=== PATIENT | female | born 1970 | race Two or more races ===

== ENCOUNTER 2024-05-28 20:06 | Emergency (ER) | payer OTHER, SELFPAY ==
[2024-05-28 20:07] VITALS: BMI 33.3
[2024-05-28 21:18] VITALS: BP 138/83; PULSE 96; RESP 18; TEMP 36.8; O2SAT 99
--- NOTE | 2024-05-28 21:23 | XR_ITS ---
Examination: PA lateral chest 2 views Technique: Upright PA lateral chest 2 views Exam date and time: May 28, 2024 2137 hrs. Comparison March 01, 2018 Indications: Onset chest pressure today. Findings: Mild prominence left ventricle No pneumonia or pulmonary edema The osseous structures are intact Minor subsegmental atelectasis left base Impression: No active disease
--- NOTE | 2024-05-28 21:23 | EKG_ITS ---
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
--- NOTE | 2024-05-28 21:23 | PD.EDRME ---
Rapid Medical Screening Exam RME Arrival date/time: 05/28/24 20:06 53-year-old female with past medical history of tachycardia and no longer on medication presents emergency department complaining of headache that has not resolved after taking Advil but she also endorses chest pain with palpitations. Chief Complaint: Headache Time Seen by Provider: 05/28/24 20:29 Vital signs: Vital Signs Temperature 98.2 F 05/28/24 21:18 Pulse Rate 96 05/28/24 21:18 Respiratory Rate 18 05/28/24 21:18 Blood Pressure 138/83 H 05/28/24 21:18 Pulse Oximetry (%) 99 05/28/24 21:18 Oxygen Delivery Method Room Air 05/28/24 21:18 Vital signs reviewed by provider: Yes
[2024-05-28] MEDS: ACETAMINOPHEN 500 MG TABLET 1000 MG PO (21:41)
[2024-05-28 21:52] LABS: Basophils % (Auto) 0 % (0-2.5); Eosinophils # (Auto) 0.1 Thou/mm3 (0.0-0.5); Eosinophils % (Auto) 1 % (0-10); Hematocrit 40.6 % (36.0-46.0); Hemoglobin 13.8 g/dL (12.0-16.0); Immature Granulocytes % (Auto) 0 % (0-0); Immature Granulocytes Auto 0.03 Thou/mm3 (0.00-0.00); Lymphocytes # (Auto) 2.6 Thou/mm3 (1.0-4.8); Lymphocytes % (Auto) 25 % (10-50); Mean Corpuscular Hemoglobin 29.1 pg (25.0-35.0); Mean Corpuscular Volume 86 fL (80-100); Monocytes # (Auto) 0.6 Thou/mm3 (0.0-0.8); Monocytes % (Auto) 6 % (0-12); Neutrophils # (Auto) 7.1 Thou/mm3 (1.8-7.7); Neutrophils % (Auto) 67 % (37-80); Nucleated Red Blood Cell % 0 /100 WBC (0); Platelet Count 395 Thou/mm3 (140-440); RDW Standard Deviation 39.1 fL (36.4-46.3); Red Blood Count 4.75 Miln/mm3 (4.00-5.20); White Blood Count 10.5 Thou/mm3 (3.6-11.0)
[2024-05-28 22:04] LABS: B-Type Natriuretic Peptide < 20 pg/mL (0-100); INR 0.9 (0.9-1.3); Partial Thromboplastin Time 25.2 Seconds (22.0-36.0); Prothrombin Time 10.3 Seconds (9.0-12.2)
[2024-05-28 22:07] LABS: Alanine Aminotransferase 32 U/L (10-49); Albumin, Serum 4.5 gm/dL (3.5-5.0); Albumin/Globulin Ratio 1.4 (1.2-2.2); Alkaline Phosphatase 119 U/L (46-116); Anion Gap 8 (7-16); Aspartate Amino Transferase 37 U/L (0-34); BUN/Creatinine Ratio 14 Ratio (12-20); Bilirubin,Total 0.3 mg/dL (0.3-1.2); Blood Urea Nitrogen 10 mg/dL (9-23); Carbon Dioxide 26.7 mMol/L (20.0-31.0); Chloride 108 mMol/L (98-107); Creatinine (Component) 0.7 mg/dL (0.6-1.3); Estimated Creatinine Clearance 104.6 mL/min (>60); Free T4 (Free Thyroxine) 1.43 ng/dL (0.89-1.76); Globulin 3.3 gm/dL (2.3-3.5); Glucose 111 mg/dL (74-106); Osmolality,Calculated 284 (275-295); Potassium 3.9 mMol/L (3.4-5.1); Sodium 143 mMol/L (136-145); Thyroid Stimulating Hormone 1.76 uIU/mL (0.55-4.78); Total Protein 7.8 gm/dL (5.7-8.2); Troponin I < 0.020 ng/mL (0.0-0.045); eGFR > 60 See Note
[2024-05-28 22:22] LABS: Collection Type, Urine Clean Catch
[2024-05-28 22:27] LABS: Bacteria,Urine Rare; Bilirubin,Urine Negative (Negative); Blood,Urine Negative (Negative); Clarity,Urine Turbid (Clear/Hazy); Color,Urine Colorless (Lt Yel-Yel); Glucose, Urine Negative (Negative); Ketones,Urine Negative (Negative); Leukocyte Esterase,Urine Positive (Negative); Nitrite,Urine Negative (Negative); Protein,Urine Negative (Neg - Trace); RBC,Urine 4 /hpf (0-3); Specific Gravity,Urine 1.011 (1.001-1.035); Squamous Epithelial Cell,Urine 1 /hpf (0-5); Urobilinogen,Urine Negative mg/dL (0.0-1.0); WBC,Urine 10 /hpf (0-5)
[2024-05-28 22:36] LABS: Amphetamine/Methamp Scrn,U Negative (Negative); Barbiturate Screen,Urine Negative (Negative); Benzodiazepines Screen,Urine Negative (Negative); Benzoylecgonine Screen, Ur Negative (Negative); Fentanyl Screen,Urine Negative (Negative); Opiate Screen,Urine Negative (Negative); THC Screen,Urine Negative (Negative)
[2024-05-28 23:39] VITALS: BP 150/92; PULSE 89; RESP 18; O2SAT 98
--- NOTE | 2024-05-29 00:02 | EDNOTE_ITS ---
ED General RME/HPI General Chief complaint: Headache Stated complaint: HEADAHCE / CHEST PRESSURE X 1HOUR Time Seen by Provider: 05/28/24 20:29 Arrival date/time: 05/28/24 20:06 RME / HPI RME / HPI narrative: 05/28/24 20:06 53-year-old female with past medical history of tachycardia and no longer on medication presents emergency department complaining of headache that has not resolved after taking Advil but she also endorses chest pain with palpitations. Dr. Steve?s Main ED Evaluation: 53yo female with a history of HTN, SVT s/p ablation presents to the ED for a chief complaint of mid chest pain. Patient states she was taking a bath when she started having chest pain that worsened on palpation. She states she became anxious due to having 2 friends who recently had MIs, so she came in for evaluation. She denies any fever, chills, headache, neck pain, back pain, shortness of breath or any other associated symptoms. She denies any tobacco or illicit drug use. Excel Analyst is Dr. Thornton. Related Data Home Medications ?Medication ?Instructions ?Recorded ?Confirmed gabapentin 300 mg capsule 300 mg PO BID #0 caps 05/25/21 metoprolol succinate 25 mg 25 mg PO QDAY ##0 05/01/17 05/25/21 tablet,extended release 24 hr montelukast 10 mg tablet 10 mg PO DAILY 10/30/1705/11 (Singulair) cholecalciferol (vitamin D3) 50 2,000 unit PO QDAY 03/2805/25/21 mcg (2,000 unit) tablet (Vitamin D3) omega 1-qpe-tid-fish oil 1,000 mg 1 cap PO QDAY 05/25/21 (120 mg-180 mg) capsule (Fish Oil) fluoxetine 10 mg capsule 10 mg PO QPM 08/18/19 zinc 50 mg capsule 50 mg PO QDAY 05/25/2105/25 Previous Rx's ?Medication ?Instructions ?Recorded hydrocodone 5 mg-acetaminophen 325 1 tab PO BID PRN pa in #6 tabs 05/25/22 mg tablet ibuprofen 800 mg tablet 800 mg PO TID PRN pain #30 t abs 05/25/22 Allergies Allergy/AdvReac Type Severity Reaction Status Date / Time pregabalin (From Lyrica) Allergy Severe Swelling Verified 05/25/22 10:41 of Lip/Tongue/Throat Review of Systems Review of Systems Systems Reviewed: All systems reviewed, normal except as documented Past Medical History Past Medical History NEUROLOGIC: Negative Neurological Disorders, Seizures or Migraine CARDIAC: Positive Cardiac Disorders, Cardiac Arrhythmia, Atrial Fibrillation (ablation at 24yo) and Edema; Negative Heart Murmur, Congestive Heart Failure or Hypertension RESPIRATORY: Negative Chronic Obstructive Pulmonary Disease (COPD), Asthma or Bronchitis GASTROINTESTINAL: Positive Gall Bladder Disease; Negative Gastrointestinal Disorders or Hepatitis GENITOURINARY: Negative Genitourinary Disorders or Renal Disease REPRODUCTIVE: Positive Previous Pregnancies MUSCULOSKELETAL: Positive Musculoskeletal Disorders and Fibromyalgia ENDOCRINE: Positive Endocrine Disorders; Negative Diabetes Mellitus Type 1, Diabetes Mellitus Type 2, Hyperthyroidism or Hypothyroidism HEMATOLOGIC: Negative Blood Disorders or Sickle Cell Disease PSYCHO/SOCIAL: Positive Anxiety; Negative Depression OTHER HISTORY: Positive Chicken Pox, Measles, Mumps and Rubella (Syriac Measles); Negative Hospitalization, Autoimmune Disease, Shingles, Falls, Blood Transfusions, Blood Transfusion Reaction, Anesthesia Reactions, Chemotherapy, Radiation Therapy, MRSA or Cancer Family History FAMILY HISTORY: Positive Family Gastrointestinal Problems and Family Cancer; Negative Family Psychiatric Problems, Family Respiratory Disorders, Family Cardiac Disorders, Family Surgery or Family Anesthesia Reaction Surgical History SURGICAL: Positive Cardiac Surgery (ablation - afib), Cardiac Catheterization, Eye Surgery and Tubal Ligation; Negative Joint Replacement Social History SMOKING STATUS: Never smoker SUBSTANCE USE: does not use ED Exam Narrative Physical exam: GENERAL APPEARANCE: alert and oriented x 4, well-developed, well-nourished, no acute distress VITALS: All vitals were reviewed and the pulse ox is 98% on room air, which is normal according to my interpretation. HEENT: Normocephalic, atraumatic; pupils equal, round, reactive to light; EOMI; mucous membranes pink, moist; oropharynx clear NECK: Supple LUNGS: CTABL; no wheezes, no rales, no rhonchi HEART: Regular rate, regular rhythm; normal S1, S2; no murmurs ABDOMEN: non distended; normal BS; soft, no tenderness, no guarding, no rebound; no masses, no organomegaly, no hernia BACK: no CVA tenderness EXTREMITIES: atraumatic; no edema NEUROLOGIC: awake; alert and oriented x4; cranial nerves II-XII grossly intact; no focal sensory or motor deficits PSYCHIATRIC: appropriate mood and affect SKIN: warm, dry, normal color; no rashes Course Course Course Narrative: CXR is ordered for determining the etiology of chest pain. Quality Measures none Orders Category Date Time Status EKG (ED ONLY) *Do not use* NOW Care 05/28/24 21:23 Completed EKG (ED Only) Stat Exams 05/28/24 21:23 Draft XR chest 2V Stat Exams 05/28/24 21:23 Completed B-Type Natriuretic Peptide Stat Lab 05/28/24 21:37 Completed CBC Stat Lab 05/28/24 21:37 Completed Comprehensive Metabolic Panel Stat Lab 05/28/24 21:37 Completed Drug Screen,Urine Stat Lab 05/28/24 22:15 Completed Free T4 (Free Thyroxine) Stat Lab 05/28/24 21:37 Completed Magnesium Stat Lab 05/28/24 21:37 Completed Partial Thromboplastin Time Stat Lab 05/28/24 21:37 Completed Prothrombin Time with INR Stat Lab 05/28/24 21:37 Completed TSH [Thyroid Stimulating Hormone] Stat Lab 05/28/24 21:37 Completed Troponin I Stat Lab 05/28/24 21:37 Completed Urinalysis Stat Lab 05/28/24 22:15 Completed Acetaminophen Tab [Tylenol ES Tab] Med 05/28/24 21:24 Discontinued 1,000 mg PO X1 ONE LORazepam [Ativan] Med 05/29/24 00:35 Discontinued 1 mg PO X1 ONE Vital Signs Vital signs: Vital Signs Temperature 98.2 F 05/28/24 21:18 Pulse Rate 96 05/28/24 21:18 Respiratory Rate 18 05/28/24 21:18 Blood Pressure 138/83 H 05/28/24 21:18 Pulse Oximetry (%) 99 05/28/24 21:18 Oxygen Delivery Method Room Air 05/28/24 21:18 [facility] Patient data External records reviewed:: [facility] previous records (Per chart review, patient has no relevant previous ED visits.) Clinical information provided by:: patient Social determinants that could affect healthcare access:: none Patient has the following chronic illnesses:: HTN How is presenting disease/condition affected by chronic disease/condition?: u neffected by Evaluation data The following diagnostics were reviewed and interpreted by me:: lab results, radiology exam(s) and EKG tracing(s) Lab and/or radiology exams considered but not ordered:: none Interpretation Summary: CBC is normal, PT and INR are normal, PTT is normal, CMP is normal, Magnesium is normal, Troponin is normal, BNP is normal, TSH and Free T4 are normal, UDS is negative, according to my interpretation. EKG done at 2131, NSR, rate of 81, QRS: 116, QTc: 402, normal axis, no ectopy, no acute ischemia, according to my interpretation. [place] [facility] Report Signed Patient: AC JOHNSON. Record#: [id number] Birthdate: 1970 Age/Sex: 53 / F Location: [facility] Attending Dr: Ordering Physician: Brittanie Irwin ([employer])Avinash Date of Service: 05/28/24 Procedure(s): XR chest 2V Accession Number(s): [id number] cc: Emanuel Nickerson MD; Temporary Provider,ED ; Brittanie Irwin ([facility]),Avinash SMITH~ Examination: PA lateral chest 2 views Technique: Upright PA lateral chest 2 views Exam date and time: May 28, [id number] hrs. Comparison March 01, 2018 Indications: Onset chest pressure today. Findings: Mild prominence left ventricle No pneumonia or pulmonary edema The osseous structures are intact Minor subsegmental atelectasis left base Impression: No active disease Dictated By: Emanuel Nickerson MD Signed By: <Electronically signed by Emanuel Nickerson MD in OV> 05/28/242144 Medications Medications considered but not ordered:: none Medication administrations:: Medication Administration History Discontinued Medications Acetaminophen (Acetaminophen 500 Mg Tablet) 1,000 mg PO X1 ONE Stop: 05/28/24 21:25 Last Admin: 05/28/24 21:41 Dose: 1,000 mg Documented By: KF Lorazepam (Lorazepam 0.5 Mg Tablet) 1 mg PO X1 ONE Stop: 05/29/24 00:36 Last Admin: 05/29/24 00:58 Dose: 1 mg Documented By: SF see above Consultations Consultation(s) initiated? (list below): No Diagnosis Differential Diagnosis ED Complaint MDM: STEMI, NSTEMI, angina, costochondritis, rib strain Most likely diagnosis given after review of the tests above:: see below Admission Indicated Admission indicated?: not indicated Explain why admission is indicated or not indicated:: No criteria for admission. Admission Request Was there a request for admission?: No Disposition Plan Disposition Plan: Discharge Discharge Attestation Discharge Attestation: The patient and all family members were given an opportunity to ask questions and understood the discharge instructions. Discharge instructions specifically effects, indications for sooner follow up or return to the emergency department, and the expected course of current diagnosis. Patient condition: Stable Medical Decision Making MDM Narrative MDM Narrative: Scribe Attestation: 05/29/24 - Thong, Bhavana Frias am scribing for and in the presence of Dr. Steve. Differential Diagnosis Differential Diagnosis: STEMI, NSTEMI, angina, costochondritis, rib strain Lab Data 05/28/24 21:37 05/28/24 21:37 Labs: Lab Results 05/28/24 05/28/24 Range/Units 21:37 22:15 WBC 10.5 (3.6-11.0) Thou/mm3 RBC 4.75 (4.00-5.20) Miln/mm3 Hgb 13.8 (12.0-16.0) g/dL Hct 40.6 (36.0-46.0) % MCV 86 (80-100) fL MCH 29.1 (25.0-35.0) pg MCHC 34.0 (31.0-37.0) g/dl RDW Std Deviation 39.1 (36.4-46.3) fL Plt Count 395 (140-440) Thou/mm3 Neut % (Auto) 67 (37-80) % Lymph % (Auto) 25 (10-50) % Lynn % (Auto) 6 (0-12) % Eos % (Auto) 1 (0-10) % Baso % (Auto) 0 (0-2.5) % Neut # (Auto) 7.1 (1.8-7.7) Thou/mm3 Lymph # (Auto) 2.6 (1.0-4.8) Thou/mm3 Lynn # (Auto) 0.6 (0.0-0.8) Thou/mm3 Eos # (Auto) 0.1 (0.0-0.5) Thou/mm3 Baso # (Auto) 0.0 (0.0-0.2) Thou/mm3 Immature Gran # (Auto) 0.03 H (0.00-0.00) Thou/mm3 Absolute Nucleated RBC 0.00 (0.00-0.00) Thou/mm3 Immature Gran % 0 (0-0) % Nucleated RBC % 0 (0) /100 WBC PT 10.3 (9.0-12.2) Seconds INR 0.9 (0.9-1.3) APTT 25.2 (22.0-36.0) Seconds Sodium 143 (136-145) mMol/L Potassium 3.9 (3.4-5.1) mMol/L Chloride 108 H (98-107) mMol/L Carbon Dioxide 26.7 (20.0-31.0) mMol/L Anion Gap 8 (7-16) BUN 10 (9-23) mg/dL Creatinine 0.7 (0.6-1.3) mg/dL Estim Creat Clear Calc 104.6 (>60) mL/min eGFR > 60 (60 - ) See Note BUN/Creatinine Ratio 14 (12-20) Ratio Glucose 111 H (74-106) mg/dL Calculated Osmolality 284 (275-295) Calcium 10.0 (8.3-10.6) mg/dL Corrected Calcium 10.0 (8.5-10.1) mg/dL Magnesium 2.0 (1.6-2.6) mg/dL Total Bilirubin 0.3 (0.3-1.2) mg/dL AST 37 H (0-34) U/L ALT 32 (10-49) U/L Alkaline Phosphatase 119 H (46-116) U/L Troponin I < 0.020 (0.0-0.045) ng/mL B-Natriuretic Peptide < 20 (0-100) pg/mL Total Protein 7.8 (5.7-8.2) gm/dL Albumin 4.5 (3.5-5.0) gm/dL Globulin 3.3 (2.3-3.5) gm/dL Albumin/Globulin Ratio 1.4 (1.2-2.2) TSH 1.76 (0.55-4.78) uIU/mL Free T4 1.43 (0.89-1.76) ng/dL Ur Collection Type Clean Catch Urine Color Colorless A (Lt Yel-Yel) Urine Clarity Turbid A (Clear/Hazy) Urine pH 6.0 (5.0-7.0) Ur Specific [place] 1.011 (1.001-1.035) Urine Protein Negative (Neg - Trace) Urine Glucose (UA) Negative (Negative) Urine Ketones Negative (Negative) Urine Blood Negative (Negative) Urine Nitrite Negative (Negative) Urine Bilirubin Negative (Negative) Urine Urobilinogen (Auto) Negative (0.0-1.0) mg/dL Ur Leukocyte Esterase Positive (Negative) Urine RBC 4 H (0-3) /hpf Urine WBC 10 H (0-5) /hpf Ur Squamous Epith Cells 1 (0-5) /hpf Urine Bacteria Rare (None) Urine Opiates Screen Negative (Negative) Urine Fentanyl Screen Negative (Negative) Ur Barbiturates Screen Negative (Negative) U Amphetamin/Meth Scrn Negative (Negative) U Benzodiazepines Scrn Negative (Negative) U Cocaine Metab Screen Negative (Negative) U Marijuana (THC) Screen Negative (Negative) Discharge Plan Plan Patient Disposition: HOME (Self Care) Disposition Comment: Stable for discharge Patient condition on transfer: Stable Prescriptions/Referrals Prescriptions/Med Rec: No Action gabapentin 300 MG capsule 300 mg PO BID Qty: 0 Patient Comments: 600 mg hs metoprolol succinate 25 MG tablet extended release 24 hr 25 mg PO QDAY Qty: 0 cholecalciferol (vitamin D3) [Vitamin D3] 2,000 unit Tablet 2,000 unit PO QDAY omega 9-eok-vzy-fish oil [Fish Oil] 1,000 mg (120 mg-180 mg) Capsule 1 cap PO QDAY montelukast [Singulair] 10 mg Tablet 10 mg PO DAILY fluoxetine 10 mg Capsule 10 mg PO QPM zinc 50 mg Capsule 50 mg PO QDAY ibuprofen 800 mg tablet 800 mg PO TID PRN (Reason: pain) Qty: 30 0RF hydrocodone-acetaminophen 5-325 mg tablet 1 tab PO BID MDD 10 PRN (Reason: pain) Qty: 6 0RF Referrals: Belkis Mac FNP [Primary Care Provider] - In 1 week Problem List Clinical Impression: Anxiety, Chest wall pain Patient/Caregiver Discharge Instructions Discharge Activity: activity as tolerated Education Materials: Journaling for Mental Health, Anxiety Disorders Tx Therapy, Understanding Anxiety Disorders, Treating Anxiety Disorders ..., ED Anxiety Reaction, ED Chest Pain, Noncardiac Additional Instructions: Please return to the emergency department if you have any worsening or if you are not improving in the next 48 hours and we will help you. Otherwise you should follow-up with your primary care doctor within the next several days You should follow-up with your certified surgical first assistant within the next several days as well. If you have any further difficulties please do not hesitate to return to the ER. Print Language: Mauritanian Stand Alone Forms: Beatriz Award Info., Patient Portal Info Letter
[2024-05-29] MEDS: LORazepam 0.5 MG TABLET 1 MG PO (00:58)
== END 2024-05-29 01:13 | disposition home or self-care (01) ==
PROVIDERS: Emergency Provider Emergency Medicine; PCP Registered Nurse Community Health
DX: F41.9 Anxiety disorder, unspecified (principal); R07.89 Other chest pain; I10 Essential (primary) hypertension
CPT/HCPCS: 36415; 71046; 80053; 80307; 81001; 83735; 83880; 84439; 84443; 84484; 85025; 85610; 85730; 93005; 99283; A9270